=== PATIENT | female | born 1955 | race Two or more races ===

== ENCOUNTER 2023-10-26 11:45 | Inpatient (IN) | payer OTHER ==
[~2023-10-26] VITALS: Ht 162.6 cm; Wt 93.0 kg
[2023-10-26] MEDS ORDERED: SYNTHROID125 MCG (14:35)
[2023-11-02] MEDS ORDERED: ATORVASTATIN CA20 MG (08:09)
[2023-11-02] MEDS ORDERED: POVIDONE-IODINE 118 ML BOTT TOP ONE ×2 (08:39→09:45)
[2023-11-02] MEDS ORDERED: CEFAZOLIN SODIUM 1,000 MG VIAL ONE ×2 (08:39→11:57)
[2023-11-02] MEDS ORDERED: CEFAZOLIN SODIUM 1,000 MG VIAL IV ONE (09:45)
[2023-11-02] MEDS ORDERED: ONDANSETRON HCL 2 MG/ML VIAL IV PRN (11:00)
[2023-11-02] MEDS ORDERED: RINGERS SOLUTION,LACTATED 1,000 ML IV SCH (11:15)
[2023-11-02] MEDS ORDERED: CEFAZOLIN SODIUM 1,000 MG VIAL IV SCH (12:00)
[2023-11-02] MEDS ORDERED: MORPHINE SULFATE 4 MG,MORPHINE SULFATE 2 MG IV SCH (12:00)
[2023-11-02 15:36] LABS: HEMOGLOBIN 13.2 g/dL (12.0-15.00); MEAN CELL VOLUME 88.3 fL (80.00-100.00); MEAN CORPUSCULAR HEMOGLOBIN 29.9 pg (27.00-32.0); MEAN CORPUSCULAR HGB CONC 33.8 g/dl (32.0-36.0); PLATELET COUNT 137 K/uL (150-450); RED BLOOD COUNT 4.42 M/uL (4.00-6.00); RED CELL DISTRIBUTION WIDTH 13.5 % (11.5-14.5)
[2023-11-03] MEDS ORDERED: IBU800 MG PO (07:13)
[2023-11-03] MEDS ORDERED: NEURONTIN300 MG PO (07:14)
[2023-11-03] MEDS ORDERED: BACTRIM 400-801 EACH PO (07:16)
[2023-11-03] MEDS ORDERED: ENOXAPARIN SODIUM 40 MG/0.4 ML SYRINGE SUBCUTANEO SCH (09:00)
== END 2023-11-03 09:18 | disposition home or self-care (01) | DRG 743 ==
LOC: ADM 11:45 → EDSTATUS 11:45 → OB/GYN 11-02 07:00 → O/R 11-02 07:15 → OB/GYN 11-02 07:15
PROVIDERS: ADMIT Obstetrics & Gynecology Gynecology; ATTEND Obstetrics & Gynecology Gynecology
PROC: 0JQC0ZZ Repair Pelvic Region Subcutaneous Tissue and Fascia, Open Approach (ICD-10-PCS; 2023-11-02)
PROC: 0USG0ZZ Reposition Vagina, Open Approach (ICD-10-PCS; 2023-11-02)
PROC: 0UT97ZZ Resection of Uterus, Via Natural or Artificial Opening (ICD-10-PCS; principal; 2023-11-02 07:00)
DX: N84.0 Polyp of corpus uteri (principal); N81.11 Cystocele, midline; N72 Inflammatory disease of cervix uteri; Z20.822 Contact with and (suspected) exposure to COVID-19